=== PATIENT | female | born 1955 | race Caucasian/White ===

== ENCOUNTER 2016-11-13 21:57 | Inpatient (IN) | payer MEDICARE, OTHER, MEDICAID ==
[~2016-11-13 21:57] MED LIST: ADULT ASPIRIN81 MG PO; ARTIFICIAL TEAR15 M8 OP; ASPIRIN EC81 MG PO; ASPIRIN81 M1 PO; CARDURA8 M1 PO; CARDURA8 MG PO; CARVEDILOL12.5 MG PO; CARVEDILOL25 M1 PO; COREG25 M1 PO; CYMBALTA60 M1 PO; DEMADEX20 M1 PO; FEOSOL325 M1 PO; FUROSEMIDE20 M1 PO; GABAPENTIN300 MG PO; GLUCAGON HCL1 MG IM; GLUCOPHAGE XR500 MG PO; HUMALOG100 U/ML SC; HUMALOG100 U/ML SQ; HUMALOG100 UNITS/ SC; HYDRALAZINE HCL10 M1 PO; HYDRALAZINE HCL25 M1 PO; HYDRALAZINE HCL50 M1 PO; ISOSORBIDE MONO60 M3 PO; LANTUS100 U/ML SC; LEVAQUIN750 MG PO; LEVEMIR100 UNITS/ SC; LISINOPRIL-HC PO; LISINOPRIL40 MG PO; MICRONASE5 MG PO; MULTI VITAMIN1 EAC1 PO; NEURONTIN100 M1 PO; NEURONTIN100 MG PO; NEURONTIN300 M1 PO; NORVASC10 M2 PO; NORVASC5 M2 PO; NORVASC5 MG PO; PROCRIT2000 UNIT/; RENVELA800 M1 PO; SENSIPAR30 M1 PO; SIMVASTATIN20 MG PO; SIMVASTATIN40 M1 PO; TRILIPIX135 MG PO; VITAMIN D-1000 UNIT/ PO; VITAMIN D2000 UNIT PO
[2016-11-14 02:25] LABS: BASO % 0.7 % (0-2); BASO ABSOLUTE COUNT 0.1 tho/cmm (0.0-0.2); EOS % 4.4 % (0-7); EOSINOPHIL ABSOLUTE COUNT 0.3 tho/cmm (0.0-0.7); HCT-HEMATOCRIT 26.4 % (34.0-49.0); HGB-HEMOGLOBIN 7.9 gm/dl (12.0-15.5); IMMATURE GRANULOCYTES ABSOLUTE 0.02 tho/cmm (0-0.03); IMMATURE GRANULOCYTES PERCENT 0.3 % (0-0.3); LYMPH % 11.3 % (20-45); LYMPH ABSOLUTE COUNT 0.8 tho/cmm (0.8-4.5); MCH (MEAN CORPUSCULAR HGB) 27.9 pg (28.0-32.0); MCHC MEAN CORPUSCULAR HGB CONC 29.9 % (32.0-36.0); MEAN PLATELET VOLUME 9.9 cmc (9.4-12.4); MONO % 7.1 % (0-12); MONOCYTE ABSOLUTE COUNT 0.5 tho/cmm (0.0-1.2); NEUTROPHIL ABSOLUTE COUNT 5.6 tho/cmm (1.6-8.0); NEUTROPHIL-AUTOMATED 5.6 tho/cmm (1.6-8.0); NEUTROPHILS % 76.2 % (40-80); PLATELET COUNT 233 tho/cmm (150-450); RED BLOOD COUNT 2.83 mil/cmm (4.00-5.20); RED CELL DISTRIBUTION WIDTH 17.8 % (12.4-16.4); WHITE BLOOD COUNT 7.4 tho/cmm (4.0-10.0)
[2016-11-14 02:28] LABS: MCV (MEAN CELL VOLUME) 93.3 fl (82.0-96.0)
[2016-11-14 02:46] LABS: MAGNESIUM 2.6 mg/dl (1.3-2.6)
[2016-11-14 05:55] LABS: ANION GAP 17 mmol/L (0-20); BLOOD UREA NITROGEN 107 mg/dl (6-24); CALCIUM 8.4 mg/dl (8.5-10.5); CARBON DIOXIDE-VENOUS 20 mmol/L (22-32); CHLORIDE 107 mmol/l (96-110); CREATININE 5.96 mg/dl (0.50-1.10); GLUCOSE 228 mg/dL (70-110); PHOSPHOROUS 7.8 mg/dl (2.5-4.9); SODIUM 138 mmol/L (135-145); eGFR VALUE FOR BLACK 8 mL/Min
[2016-11-14] MEDS ORDERED: HYDROCODON-ACE1 EA16 PO (12:29)
[2016-11-14] MEDS ORDERED: HUMALOG MI100 UNITS1 SC (12:31)
[2016-11-14] MEDS ORDERED: CERTAVITE-ANTI1 EACH PO (12:33)
[2016-11-14] MEDS ORDERED: PLAVIX75 M1 PO (12:50)
[2016-11-14] MEDS ORDERED: CARDURA8 M1 PO (12:51)
[2016-11-15 07:30] LABS: ALBUMIN 3.2 g/dl (3.5-5.0); ANION GAP 14 mmol/L (0-20); BLOOD UREA NITROGEN 91 mg/dl (6-24); CALCIUM 8.5 mg/dl (8.5-10.5); CARBON DIOXIDE-VENOUS 24 mmol/L (22-32); CHLORIDE 107 mmol/l (96-110); CREATININE 5.33 mg/dl (0.50-1.10); GLUCOSE 186 mg/dL (70-110); MAGNESIUM 2.4 mg/dl (1.3-2.6); PHOSPHOROUS 6.3 mg/dl (2.5-4.9); POTASSIUM 5.1 mmol/L (3.7-5.1); SODIUM 140 mmol/L (135-145); eGFR VALUE FOR BLACK 9 mL/Min
[2016-11-15 07:41] LABS: BASO % 0.7 % (0-2); BASO ABSOLUTE COUNT 0.1 tho/cmm (0.0-0.2); EOS % 4.5 % (0-7); EOSINOPHIL ABSOLUTE COUNT 0.3 tho/cmm (0.0-0.7); HCT-HEMATOCRIT 26.5 % (34.0-49.0); HGB-HEMOGLOBIN 7.9 gm/dl (12.0-15.5); IMMATURE GRANULOCYTES ABSOLUTE 0.02 tho/cmm (0-0.03); IMMATURE GRANULOCYTES PERCENT 0.3 % (0-0.3); LYMPH ABSOLUTE COUNT 0.9 tho/cmm (0.8-4.5); MCHC MEAN CORPUSCULAR HGB CONC 29.8 % (32.0-36.0); MEAN PLATELET VOLUME 9.8 cmc (9.4-12.4); MONO % 8.5 % (0-12); MONOCYTE ABSOLUTE COUNT 0.6 tho/cmm (0.0-1.2); NEUTROPHIL ABSOLUTE COUNT 4.9 tho/cmm (1.6-8.0); NEUTROPHIL-AUTOMATED 4.9 tho/cmm (1.6-8.0); PLATELET COUNT 232 tho/cmm (150-450); RED BLOOD COUNT 2.82 mil/cmm (4.00-5.20); RED CELL DISTRIBUTION WIDTH 17.8 % (12.4-16.4); WHITE BLOOD COUNT 6.7 tho/cmm (4.0-10.0)
[2016-11-16 05:15] LABS: ALBUMIN 3.2 g/dl (3.5-5.0); ANION GAP 12 mmol/L (0-20); BLOOD UREA NITROGEN 66 mg/dl (6-24); CALCIUM 8.1 mg/dl (8.5-10.5); CARBON DIOXIDE-VENOUS 27 mmol/L (22-32); CHLORIDE 102 mmol/l (96-110); FERRITIN 312 ng/ml (8-250); GLUCOSE 153 mg/dL (70-110); MAGNESIUM 2.2 mg/dl (1.3-2.6); PHOSPHOROUS 5.5 mg/dl (2.5-4.9); POTASSIUM 4.4 mmol/L (3.7-5.1); SODIUM 137 mmol/L (135-145); eGFR VALUE FOR BLACK 11 mL/Min
[2016-11-16 06:13] LABS: IRON 36 ug/dl (37-170); IRON BINDING CAPACITY 252 ug/dl (250-450)
[2016-11-17 06:42] LABS: HGB-HEMOGLOBIN 8.1 gm/dl (12.0-15.5); PLATELET COUNT 242 tho/cmm (150-450)
[2016-11-18 06:32] LABS: ALBUMIN 3.3 g/dl (3.5-5.0); ANION GAP 13 mmol/L (0-20); BLOOD UREA NITROGEN 53 mg/dl (6-24); CALCIUM 8.9 mg/dl (8.5-10.5); CARBON DIOXIDE-VENOUS 28 mmol/L (22-32); CHLORIDE 102 mmol/l (96-110); CREATININE 4.95 mg/dl (0.50-1.10); GLUCOSE 138 mg/dL (70-110); PHOSPHOROUS 6.7 mg/dl (2.5-4.9); POTASSIUM 4.3 mmol/L (3.7-5.1); SODIUM 139 mmol/L (135-145); eGFR VALUE FOR BLACK 10 mL/Min
[2016-11-19 06:00] LABS: HGB-HEMOGLOBIN 8.4 gm/dl (12.0-15.5); PLATELET COUNT 241 tho/cmm (150-450)
[2016-11-19] MEDS ORDERED: LEVEMIR100 UNITS/ SC (12:56)
[2016-11-20 06:39] LABS: ANION GAP 13 mmol/L (0-20); BLOOD UREA NITROGEN 52 mg/dl (6-24); CALCIUM 9.3 mg/dl (8.5-10.5); CARBON DIOXIDE-VENOUS 26 mmol/L (22-32); CHLORIDE 106 mmol/l (96-110); CREATININE 4.85 mg/dl (0.50-1.10); GLUCOSE 167 mg/dL (70-110); PHOSPHOROUS 6.4 mg/dl (2.5-4.9); POTASSIUM 4.3 mmol/L (3.7-5.1); SODIUM 141 mmol/L (135-145); eGFR VALUE FOR BLACK 11 mL/Min
[2017-02-24] MEDS ORDERED: O2 (09:40)
[2017-02-24] MEDS ORDERED: CPAP (09:40)
[2017-02-24] MEDS ORDERED: BACTRIM DS TAB1 EAC2 PO (11:00)
[2017-02-26] MEDS ORDERED: COLACE100 M1 PO (13:44)
[2017-02-26] MEDS ORDERED: NORCO 5-325 TA1 EACH PO (13:44)
[2017-02-26] MEDS ORDERED: MIRALAX17 G2 PO (13:45)
[2017-04-25] MEDS ORDERED: TORSEMIDE100 M1 PO (16:04)
[2017-04-25] MEDS ORDERED: ZOCOR40 M1 PO (16:06)
[2017-04-25] MEDS ORDERED: RENVELA800 M1 PO (16:07)
[2017-04-25] MEDS ORDERED: VENOFER50 MG/2.5 IV (16:11)
== END 2016-11-20 16:10 | DRG 69 ==
LOC: 5EB 21:57
PROVIDERS: Family Medicine; Internal Medicine Nephrology; Registered Nurse; ADMIT Hospitalist
PROC: 5A1D60Z (ICD-10-PCS; principal; 2016-11-14)
DX: G45.8 Other transient cerebral ischemic attacks and related syndromes (principal); E11.22 Type 2 diabetes mellitus with diabetic chronic kidney disease; N17.9 Acute kidney failure, unspecified; I12.0 Hypertensive chronic kidney disease with stage 5 chronic kidney disease or end stage renal disease; E11.40 Type 2 diabetes mellitus with diabetic neuropathy, unspecified; N18.5 Chronic kidney disease, stage 5; G81.94 Hemiplegia, unspecified affecting left nondominant side; E87.5 Hyperkalemia; D50.9 Iron deficiency anemia, unspecified; E83.39 Other disorders of phosphorus metabolism; E11.65 Type 2 diabetes mellitus with hyperglycemia; M14.60 Charcot's joint, unspecified site; R60.0 Localized edema; R63.5 Abnormal weight gain; E11.319 Type 2 diabetes mellitus with unspecified diabetic retinopathy without macular edema; D63.1 Anemia in chronic kidney disease; I25.10 Atherosclerotic heart disease of native coronary artery without angina pectoris; E87.70 Fluid overload, unspecified; E78.5 Hyperlipidemia, unspecified; Z99.2 Dependence on renal dialysis; Z86.73 Personal history of transient ischemic attack (TIA), and cerebral infarction without residual deficits
CPT/HCPCS: G8978-GP-CL; G8979-GP-CJ; J0885; J1644; J1756; J1815; J1940; J2150; J7050

== ENCOUNTER 2017-01-17 14:09 | Inpatient (IN) | payer MEDICARE, OTHER, MEDICAID ==
[~2017-01-17 14:09] MED LIST changes: +CERTAVITE-ANTI1 EACH PO; +HUMALOG MI100 UNITS1 SC; +HYDROCODON-ACE1 EA16 PO; +PLAVIX75 M1 PO
[2017-01-17] MEDS ORDERED: ALL DAY ALLERGY10 M4 PO (14:18)
[2017-01-17] MEDS ORDERED: FLUTICASONE PRO16 G1 (14:28)
[2017-01-17] MEDS ORDERED: HUMALOG100 UNITS/ SC (14:32)
[2017-01-17] MEDS ORDERED: PROCRIT10000 UNIT SC (14:56)
[2017-01-17] MEDS ORDERED: VENOFER50 MG/2.5 IV (14:57)
[2017-01-17 16:50] LABS: BASO % 0.5 % (0-2); EOS % 2.9 % (0-7); EOSINOPHIL ABSOLUTE COUNT 0.2 tho/cmm (0.0-0.7); HGB-HEMOGLOBIN 7.2 gm/dl (12.0-15.5); IMMATURE GRANULOCYTES ABSOLUTE 0.01 tho/cmm (0-0.03); IMMATURE GRANULOCYTES PERCENT 0.2 % (0-0.3); LYMPH % 10.8 % (20-45); LYMPH ABSOLUTE COUNT 0.7 tho/cmm (0.8-4.5); MCH (MEAN CORPUSCULAR HGB) 28.2 pg (28.0-32.0); MCHC MEAN CORPUSCULAR HGB CONC 31.3 % (32.0-36.0); MCV (MEAN CELL VOLUME) 90.2 fl (82.0-96.0); MONOCYTE ABSOLUTE COUNT 0.7 tho/cmm (0.0-1.2); NEUTROPHIL ABSOLUTE COUNT 4.8 tho/cmm (1.6-8.0); NEUTROPHIL-AUTOMATED 4.8 tho/cmm (1.6-8.0); NEUTROPHILS % 74.6 % (40-80); PLATELET COUNT 246 tho/cmm (150-450); RED BLOOD COUNT 2.55 mil/cmm (4.00-5.20); RED CELL DISTRIBUTION WIDTH 16.2 % (12.4-16.4); WHITE BLOOD COUNT 6.5 tho/cmm (4.0-10.0)
[2017-01-17 17:03] LABS: IRON 29 ug/dl (37-170); IRON BINDING CAPACITY 200 ug/dl (250-450)
[2017-01-17 17:07] LABS: ANION GAP 13 mmol/L (0-20); BLOOD UREA NITROGEN 16 mg/dl (6-24); CALCIUM 8.6 mg/dl (8.5-10.5); CARBON DIOXIDE-VENOUS 30 mmol/L (22-32); CHLORIDE 97 mmol/l (96-110); CREATININE 2.49 mg/dl (0.50-1.10); FERRITIN 996 ng/ml (8-250); GLUCOSE 159 mg/dL (70-110); POTASSIUM 3.7 mmol/L (3.7-5.1); SODIUM 136 mmol/L (135-145); eGFR VALUE FOR BLACK 24 mL/Min
[2017-02-24] MEDS ORDERED: CPAP (09:40)
[2017-02-24] MEDS ORDERED: O2 (09:40)
[2017-02-24] MEDS ORDERED: BACTRIM DS TAB1 EAC2 PO (11:00)
[2017-02-26] MEDS ORDERED: NORCO 5-325 TA1 EACH PO (13:44)
[2017-02-26] MEDS ORDERED: COLACE100 M1 PO (13:44)
[2017-02-26] MEDS ORDERED: MIRALAX17 G2 PO (13:45)
[2017-04-25] MEDS ORDERED: TORSEMIDE100 M1 PO (16:04)
[2017-04-25] MEDS ORDERED: ZOCOR40 M1 PO (16:06)
[2017-04-25] MEDS ORDERED: RENVELA800 M1 PO (16:07)
[2017-04-25] MEDS ORDERED: VENOFER50 MG/2.5 IV (16:11)
== END 2017-01-18 16:15 | DRG 682 ==
LOC: 5WE 14:09
PROVIDERS: Hospitalist; ADMIT Internal Medicine
PROC: 30233N1 Transfusion of Nonautologous Red Blood Cells into Peripheral Vein, Percutaneous Approach (ICD-10-PCS; principal; 2017-01-18)
DX: I12.0 Hypertensive chronic kidney disease with stage 5 chronic kidney disease or end stage renal disease (principal); N18.6 End stage renal disease; E11.21 Type 2 diabetes mellitus with diabetic nephropathy; D63.1 Anemia in chronic kidney disease; E11.22 Type 2 diabetes mellitus with diabetic chronic kidney disease; E11.40 Type 2 diabetes mellitus with diabetic neuropathy, unspecified; E83.52 Hypercalcemia; E83.39 Other disorders of phosphorus metabolism; F41.9 Anxiety disorder, unspecified; F32.9 Major depressive disorder, single episode, unspecified; E66.01 Morbid (severe) obesity due to excess calories; I25.10 Atherosclerotic heart disease of native coronary artery without angina pectoris; E78.5 Hyperlipidemia, unspecified; G47.33 Obstructive sleep apnea (adult) (pediatric); Z99.2 Dependence on renal dialysis; Z86.73 Personal history of transient ischemic attack (TIA), and cerebral infarction without residual deficits
CPT/HCPCS: J1756; J1815; P9016

== ENCOUNTER 2017-04-29 08:06 | Day surgery (SDC) | payer MEDICARE, MEDICAID ==
[~2017-04-29] VITALS: Ht 180.3 cm; Wt 119.0 kg
[~2017-04-29 08:06] MED LIST changes: +ALL DAY ALLERGY10 M4 PO; +BACTRIM DS TAB1 EAC2 PO; +COLACE100 M1 PO; +CPAP; +FLUTICASONE PRO16 G1; +MIRALAX17 G2 PO; +NORCO 5-325 TA1 EACH PO; +O2; +PROCRIT10000 UNIT SC; +TORSEMIDE100 M1 PO; +VENOFER50 MG/2.5 IV; +ZOCOR40 M1 PO
[2017-04-29 09:04] LABS: PROTHROMBIN TIME 11.3 SECONDS (9.0-13.6)
[2017-04-29 09:10] LABS: ANION GAP 16 mmol/L (0-20); BLOOD UREA NITROGEN 77 mg/dl (6-24); CALCIUM 9.4 mg/dl (8.5-10.5); CARBON DIOXIDE-VENOUS 20 mmol/L (22-32); CHLORIDE 108 mmol/l (96-110); CREATININE 5.98 mg/dl (0.50-1.10); GLUCOSE 247 mg/dL (70-110); SODIUM 139 mmol/L (135-145); eGFR VALUE FOR BLACK 8 mL/Min
[2017-04-29 09:16] LABS: POTASSIUM 5.4 mmol/L (3.7-5.1)
[2017-04-29 09:20] LABS: BASO % 1.2 % (0-2); BASO ABSOLUTE COUNT 0.1 tho/cmm (0.0-0.2); EOS % 5.8 % (0-7); EOSINOPHIL ABSOLUTE COUNT 0.4 tho/cmm (0.0-0.7); HCT-HEMATOCRIT 31.7 % (34.0-49.0); HGB-HEMOGLOBIN 10.2 gm/dl (12.0-15.5); IMMATURE GRANULOCYTES ABSOLUTE 0.05 tho/cmm (0-0.03); IMMATURE GRANULOCYTES PERCENT 0.7 % (0-0.3); LYMPH % 15.8 % (20-45); LYMPH ABSOLUTE COUNT 1.1 tho/cmm (0.8-4.5); MCH (MEAN CORPUSCULAR HGB) 28.9 pg (28.0-32.0); MCHC MEAN CORPUSCULAR HGB CONC 32.2 % (32.0-36.0); MCV (MEAN CELL VOLUME) 89.8 fl (82.0-96.0); MEAN PLATELET VOLUME 10.3 cmc (9.4-12.4); MONO % 7.3 % (0-12); MONOCYTE ABSOLUTE COUNT 0.5 tho/cmm (0.0-1.2); NEUTROPHIL ABSOLUTE COUNT 4.6 tho/cmm (1.6-8.0); NEUTROPHIL-AUTOMATED 4.6 tho/cmm (1.6-8.0); NEUTROPHILS % 69.2 % (40-80); PLATELET COUNT 194 tho/cmm (150-450); RED BLOOD COUNT 3.53 mil/cmm (4.00-5.20); RED CELL DISTRIBUTION WIDTH 15.4 % (12.4-16.4); WHITE BLOOD COUNT 6.7 tho/cmm (4.0-10.0)
[2017-04-29 10:26] LABS: ANION GAP 15 mmol/L (0-20); BLOOD UREA NITROGEN 74 mg/dl (6-24); CALCIUM 8.9 mg/dl (8.5-10.5); CARBON DIOXIDE-VENOUS 20 mmol/L (22-32); CHLORIDE 113 mmol/l (96-110); CREATININE 5.85 mg/dl (0.50-1.10); GLUCOSE 220 mg/dL (70-110); SODIUM 142 mmol/L (135-145); eGFR VALUE FOR BLACK 8 mL/Min
[2017-04-29 10:28] LABS: POTASSIUM 5.6 mmol/L (3.7-5.1)
== END 2017-04-29 16:30 ==
LOC: RADSP 08:06 → SHSB 08:06 → RADSP 10:00
PROVIDERS: Radiology Diagnostic Radiology
PROC: 047K34Z Dilation of Right Femoral Artery with Drug-eluting Intraluminal Device, Percutaneous Approach (ICD-10-PCS; principal; 2017-04-29)
DX: I70.92 Chronic total occlusion of artery of the extremities (principal); I70.201 Unspecified atherosclerosis of native arteries of extremities, right leg; L97.819 Non-pressure chronic ulcer of other part of right lower leg with unspecified severity; I12.9 Hypertensive chronic kidney disease with stage 1 through stage 4 chronic kidney disease, or unspecified chronic kidney disease; E11.22 Type 2 diabetes mellitus with diabetic chronic kidney disease; N18.9 Chronic kidney disease, unspecified; E11.319 Type 2 diabetes mellitus with unspecified diabetic retinopathy without macular edema; E11.40 Type 2 diabetes mellitus with diabetic neuropathy, unspecified; Z86.73 Personal history of transient ischemic attack (TIA), and cerebral infarction without residual deficits; Z98.890 Other specified postprocedural states; Z79.82 Long term (current) use of aspirin; Z79.01 Long term (current) use of anticoagulants; Z79.899 Other long term (current) drug therapy
CPT/HCPCS: C1724; C1725; C1760; C1769; C1887; C2623; J1644; J2250; J3010; J7030; Q9967